=== PATIENT | male | born 1960 | race Hispanic/Latino ===

== ENCOUNTER 2020-12-22 06:00 | Day surgery (SDC) | payer BC ==
[2020-12-18 13:38] LABS: BASOPHILS % (AUTO) 0.8 % (0.0-5.0); EOSINOPHILS % (AUTO) 0.9 % (0.0-8.0); HEMATOCRIT 41.9 % (36-48); LYMPHOCYTES % (AUTO) 31.9 % (21.0-51.0); MEAN CORPUSCULAR HEMOGLOBIN 33.3 pg (27.0-33.0); MEAN CORPUSCULAR HGB CONC 35.6 g/dL (32.0-36.0); MEAN CORPUSCULAR VOLUME 93.7 fL (79-99); MONOCYTES % (AUTO) 9.3 % (3.0-13.0); NEUTROPHILS % (AUTO) 56.7 % (40.0-77.0); PLATELET COUNT (AUTO) 189 K/uL (130-400); RED BLOOD CELL COUNT(AUTO) 4.47 MIL/uL (4.00-5.50); RED CELL DISTRIBUTION WIDTH 12.7 % (11.0-15.5); WHITE BLOOD COUNT (AUTO) 7.7 K/uL (4.8-10.8)
[2020-12-18 13:52] LABS: POTASSIUM 4.3 mmol/L (3.5-5.1)
[2020-12-18 14:23] LABS: INR 1.17 (0.85-1.15); PARTIAL THROMBOPLASTIN TIME 28.8 SEC (26.3-35.5); PROTHROMBIN TIME 12.1 SEC (9.6-11.6)
[~2020-12-22] VITALS: Ht 172.7 cm; Wt 94.2 kg
[2020-12-22] VITALS (9 sets, daily range): BP systolic 125–168; BP diastolic 70–88
[~2020-12-22 06:00] MED LIST: AMIO400T4 PO; ATEN50TA PO; GLIP1TAB6 PO; RIVA20TA PO; ROSU5TAB12 PO; SACU1TAB7 PO
[2020-12-22] MEDS ORDERED: SODIUM CHLORIDE 0.9% 1000ML 1,000 ML IV ONE ×2 (06:13→06:24)
[2020-12-22] MEDS ORDERED: MIDAZOLAM HCL 1 MG/ML 2ML VIAL ONE ×2 (07:52→08:56)
[2020-12-22] MEDS ORDERED: LIDOCAINE HCL 2% 20ML ONE (07:52)
[2020-12-22] MEDS ORDERED: MEPERIDINE-PF 25 MG/ML SYG ONE ×2 (07:52→08:56)
[2020-12-22] MEDS ORDERED: HEPARIN SODIUM 1000UNIT/ML 10ML VIAL ONE (07:54)
[2020-12-22] MEDS ORDERED: SODIUM CHLORIDE 0.9% 1000ML 1,000 ML IV SCH (08:00)
== END 2020-12-22 12:55 | disposition home or self-care (01) ==
LOC: DAH 06:00
PROVIDERS: ATTEND Internal Medicine Cardiovascular Disease
DX: I48.3 Typical atrial flutter (principal); I10 Essential (primary) hypertension; E11.9 Type 2 diabetes mellitus without complications; E78.00 Pure hypercholesterolemia, unspecified; I25.10 Atherosclerotic heart disease of native coronary artery without angina pectoris; Z87.891 Personal history of nicotine dependence; Z79.01 Long term (current) use of anticoagulants; Z79.899 Other long term (current) drug therapy
CPT/HCPCS: 36415; 80048; 82948 ×2; 85025; 85610; 85730; 93005 ×3; 93613; 93621; 93653; A4215; A4216; A4221; A4222; A4223 ×3; A4606; A4649 ×2; A4663; C1730; C1732; C1894 ×2; J1644 ×2; J2175 ×2; J2250 ×2; J3490; J7030 ×2; 99156; 99157

== ENCOUNTER → 2021-03-01 | Outpatient (CLI) | payer BC | END | disposition home or self-care (01) | LOC: SHCH 13:03 | PROVIDERS: ATTEND Internal Medicine Cardiovascular Disease | DX: I48.3 Typical atrial flutter (principal) | CPT/HCPCS: 93306; 93356 ==

== ENCOUNTER → 2022-12-13 | Outpatient (CLI) | payer BC ==
[~2022-12-13] MED LIST changes: +REGADENOSON 0.4 MG/5 ML PF SYG IVP ONE
== END | disposition home or self-care (01) ==
LOC: SHCH 08:54
PROVIDERS: ATTEND Internal Medicine Cardiovascular Disease
DX: I25.10 Atherosclerotic heart disease of native coronary artery without angina pectoris (principal); R06.00 Dyspnea, unspecified
CPT/HCPCS: 78452; 96374; 93017; J2785; A9500 ×2

== ENCOUNTER 2023-01-12 08:43 | Day surgery (SDC) | payer BC ==
[2023-01-10 14:44] LABS: BASOPHILS % (AUTO) 0.6 % (0.0-5.0); EOSINOPHILS % (AUTO) 0.9 % (0.0-8.0); HEMATOCRIT 41.4 % (42-54); LYMPHOCYTES % (AUTO) 27.7 % (21.0-51.0); MEAN CORPUSCULAR HEMOGLOBIN 31.7 pg (27.0-33.0); MEAN CORPUSCULAR HGB CONC 34.5 g/dL (32.0-36.0); MEAN CORPUSCULAR VOLUME 91.8 fL (79-99); MONOCYTES % (AUTO) 10.5 % (3.0-13.0); NEUTROPHILS % (AUTO) 59.6 % (40.0-77.0); PLATELET COUNT (AUTO) 194 K/uL (130-400); RED BLOOD CELL COUNT(AUTO) 4.51 MIL/uL (4.50-6.20); RED CELL DISTRIBUTION WIDTH 13.3 % (11.0-15.5); WHITE BLOOD COUNT (AUTO) 6.7 K/uL (4.8-10.8)
[2023-01-10 14:51] VITALS: BP 142/73
[2023-01-10 14:51] LABS: APPEARANCE,URINE CLEAR (CLEAR); BILIRUBIN,URINE NEGATIVE (NEGATIVE); COLOR,URINE LIGHT-YELLOW (YELLOW); GLUCOSE, URINE (UA) NEGATIVE (NEGATIVE); KETONES,URINE NEGATIVE (NEGATIVE); LEUKOCYTE ESTERASE ,URINE NEGATIVE Leu/uL (NEGATIVE); NITRATE,URINE NEGATIVE (NEGATIVE); OCCULT BLOOD,URINE NEGATIVE (NEGATIVE); PROTEIN,URINE NEGATIVE (NEGATIVE); UROBILINOGEN,URINE 0.2 mg/dL (0.2-1.0)
[2023-01-10 14:52] LABS: RBC,URINE 0-1 /HPF (0-1); WBC,URINE 0-1 /HPF (0-1)
[2023-01-10 14:53] LABS: INR 0.98 (0.85-1.15); PROTHROMBIN TIME 10.7 SEC (9.6-11.6)
[2023-01-10 14:54] LABS: PARTIAL THROMBOPLASTIN TIME 26.5 SEC (26.3-35.5)
[2023-01-10 15:04] LABS: CREATININE 1.1 mg/dL (0.5-1.5); POTASSIUM 3.9 mmol/L (3.5-5.1)
[2023-01-10 15:24] LABS: B-TYPE NATRIURETIC PEPTIDE 25 pg/mL (0-100)
[~2023-01-12] VITALS: Ht 172.7 cm; Wt 90.4 kg
[2023-01-12] VITALS (14 sets, daily range): BP systolic 115–146; BP diastolic 65–81
[~2023-01-12 08:43] MED LIST changes: +ALBU90AE2 IH; +AMIO200T68 PO; -AMIO400T4 PO; +APIX5TAB PO; -ATEN50TA PO; +AZIT500T4 PO; +LISI10TA24 PO; -REGADENOSON 0.4 MG/5 ML PF SYG IVP ONE; -RIVA20TA PO; -ROSU5TAB12 PO; -SACU1TAB7 PO; +SIMV40TA59 PO; +SITA100T12 PO; +VITA400T9 PO
[2023-01-12] MEDS ORDERED: 0.9%NACL 1000ML 1,000 ML IV ONE (09:07)
[2023-01-12] MEDS ORDERED: LIDOCAINE HCL 400MG/20ML VIAL ONE (15:25)
[2023-01-12] MEDS ORDERED: IOHEXOL 350 MG/ML 100ML INFUS..BTL IV ONE (15:26)
[2023-01-12] MEDS ORDERED: IOHEXOL-350 50ML VIAL IV ONE (15:26)
[2023-01-12] MEDS ORDERED: BIVALIRUDIN 250 MG/VIAL IV ONE (15:26)
[2023-01-12] MEDS ORDERED: NICARDIPINE 25MG INJ IV ONE (15:26)
[2023-01-12] MEDS ORDERED: MIDAZOLAM HCL 1 MG/ML 2ML VIAL ONE (15:26)
[2023-01-12] MEDS ORDERED: NITROGLYCERIN 50MG VIAL ONE (15:26)
[2023-01-12] MEDS ORDERED: FENTANYL CITRATE PF 50 MCG/1 ML 2ML VIAL ONE (15:26)
[2023-01-12] MEDS ORDERED: HEPARIN 10,000 UNIT/10ML (1,000 UNIT/ML) VIAL ONE (15:27)
[2023-01-12] MEDS ORDERED: GLUCAGON 1MG KIT 1 MG ML IM PRN (16:30)
[2023-01-12] MEDS ORDERED: DEXTROSE 50%-WATER 50 ML DISP.SYRIN IV PRN (16:30)
[2023-01-12] MEDS ORDERED: INSULIN HUMULIN R 100 UNIT/ML 3ML SQ SCH (16:30)
[2023-01-12] MEDS ORDERED: NITROGLYCERIN 0.4 MG SL TAB SL PRN (16:30)
[2023-01-12] MEDS ORDERED: HYDRALAZINE 20MG/ML VIAL IV PRN (17:00)
[2023-01-12] MEDS ORDERED: ATROPINE 1MG SYG IVP ONE ×2 (17:01→17:02)
== END 2023-01-12 19:55 | disposition home or self-care (01) ==
LOC: DAH 08:43
PROVIDERS: ATTEND Internal Medicine Cardiovascular Disease
DX: I25.119 Atherosclerotic heart disease of native coronary artery with unspecified angina pectoris (principal); I48.20 Chronic atrial fibrillation, unspecified; I25.5 Ischemic cardiomyopathy; I11.0 Hypertensive heart disease with heart failure; I50.42 Chronic combined systolic (congestive) and diastolic (congestive) heart failure; E11.9 Type 2 diabetes mellitus without complications; E78.5 Hyperlipidemia, unspecified; I25.2 Old myocardial infarction; Z79.01 Long term (current) use of anticoagulants; Z79.84 Long term (current) use of oral hypoglycemic drugs; Z79.899 Other long term (current) drug therapy
CPT/HCPCS: 80048; 83880; 85025; 85610; 85730; 81001; 36415; 71045; 93005; 93458; 82948 ×2; C1769 ×2; C1894 ×3; J3010; J3490 ×3; J7030; J1644 ×2; J2250; Q9967; A4215; A4222; A4221; A4663; A4216; A4606; Q9965; A4223 ×3; 99156; 99157; J0461; J0583

== ENCOUNTER → 2023-05-01 | Outpatient (CLI) | payer BC ==
[~2023-05-01] MED LIST changes: -ALBU90AE2 IH; -AZIT500T4 PO; +IOHEXOL 350 MG/ML 100ML INFUS..BTL IV ONE; +ROSU10TA28 PO; -SIMV40TA59 PO; +TIRZ2.5P SQ; -VITA400T9 PO
== END | disposition home or self-care (01) ==
LOC: RAH 09:54
PROVIDERS: ATTEND Internal Medicine Cardiovascular Disease
DX: I48.0 Paroxysmal atrial fibrillation (principal)
CPT/HCPCS: 71275; Q9967

== ENCOUNTER 2023-05-04 06:04 | Observation (INO) | payer BC ==
[2023-04-28 09:08] LABS: BASOPHILS # (AUTO) 0.05 K/uL (0.00-0.20); BASOPHILS % (AUTO) 0.7 % (0.0-5.0); EOSINOPHILS # (AUTO) 0.08 K/uL (0.00-0.70); EOSINOPHILS % (AUTO) 1.1 % (0.0-8.0); HEMATOCRIT 43.8 % (42-54); IMMATURE GRANULOCYTE ABSOLUTE 0.06 K/uL (0-1); LYMPHOCYTES # (AUTO) 1.9 K/uL (1.0-4.8); LYMPHOCYTES % (AUTO) 24.8 % (21.0-51.0); MEAN CORPUSCULAR HEMOGLOBIN 32.8 pg (27.0-33.0); MEAN CORPUSCULAR VOLUME 96.5 fL (79-99); MONOCYTES # (AUTO) 0.7 K/uL (0.1-1.0); MONOCYTES % (AUTO) 8.9 % (3.0-13.0); NEUTROPHILS # (AUTO) 4.8 K/uL (1.8-7.7); NEUTROPHILS % (AUTO) 63.7 % (40.0-77.0); PLATELET COUNT (AUTO) 193 K/uL (130-400); RED BLOOD CELL COUNT(AUTO) 4.54 MIL/uL (4.50-6.20); RED CELL DISTRIBUTION WIDTH 12.7 % (11.0-15.5); WHITE BLOOD COUNT (AUTO) 7.5 K/uL (4.8-10.8)
[2023-04-28 09:19] LABS: INR 0.95 (0.85-1.15); PROTHROMBIN TIME 11.1 SEC (9.6-11.6)
[2023-04-28 09:20] LABS: PARTIAL THROMBOPLASTIN TIME 29.3 SEC (26.3-35.5)
[2023-04-28 09:21] LABS: CREATININE 1.1 mg/dL (0.5-1.5); POTASSIUM 4.5 mmol/L (3.5-5.1)
[2023-04-28 09:28] VITALS: BP 156/78; PULSE 58; RESP 20
[2023-05-04] VITALS (32 sets, daily range): BP systolic 130–157; BP diastolic 62–80; PULSE 50–67; RESP 10–22; O2SAT 98–99
[~2023-05-04] VITALS: Ht 177.8 cm; Wt 92.9 kg
[~2023-05-04 06:04] MED LIST changes: -IOHEXOL 350 MG/ML 100ML INFUS..BTL IV ONE
[2023-05-04] MEDS ORDERED: 0.9%NACL 1000ML 1,000 ML IV ONE (06:37)
[2023-05-04] MEDS ORDERED: MIDAZOLAM HCL 1 MG/ML 2ML VIAL ONE (06:58)
[2023-05-04] MEDS ORDERED: ROCURONIUM 10MG/1ML SYR 10 MG/ML ML ONE ×2 (06:59→08:37)
[2023-05-04] MEDS ORDERED: PROPOFOL 10 MG/ML 20ML VIAL IV ONE (06:59)
[2023-05-04] MEDS ORDERED: FENTANYL CITRATE PF 50 MCG/1 ML 2ML VIAL ONE ×2 (06:59→07:23)
[2023-05-04] MEDS ORDERED: HEPARIN 10,000 UNIT/10ML (1,000 UNIT/ML) VIAL ONE ×2 (07:15→08:44)
[2023-05-04] MEDS ORDERED: LIDOCAINE HCL 1% MDV 50ML VIAL ONE (07:15)
[2023-05-04] MEDS ORDERED: PHENYLEPHRINE HCL 10 MG/ML 1ML VIAL IV ONE (07:23)
[2023-05-04] MEDS ORDERED: PROTAMINE SULFATE 10 MG/ML 25ML VIAL IV ONE (10:13)
[2023-05-04] MEDS ORDERED: NEOSTIGMINE 5MG/5ML SYR IV ONE (10:29)
[2023-05-04] MEDS ORDERED: GLYCOPYRROLATE 1 MG/5 ML SYRINGE ONE (10:29)
[2023-05-04] MEDS ORDERED: SUCR1ORA15 PO (10:51)
[2023-05-04] MEDS ORDERED: PANT40TA55 PO (10:51)
[2023-05-04] MEDS ORDERED: PANTOPRAZOLE 40 MG TAB DR PO SCH (11:00)
[2023-05-04] MEDS: SUCRALFATE 1 GM TABLET PO SCH ×3 (11:00→23:27)
[2023-05-04] MEDS ORDERED: Tirzepatide (Mounjaro) 2.5 MG SQ SCH (11:30)
[2023-05-04] MEDS ORDERED: Rosuvastatin Calcium 10 MG PO SCH (21:00)
[2023-05-04] MEDS: METFORMIN HCL PO SCH (21:11)
[2023-05-04] MEDS: GLIPIZIDE PO SCH (21:11)
[2023-05-04] MEDS: APIXABAN 5 MG TABLET PO SCH (21:11)
[2023-05-05 00:24] VITALS: BP 148/73; PULSE 55; RESP 18
[2023-05-05 03:45] VITALS: BP 142/69; PULSE 62; RESP 18
[2023-05-05] MEDS: SUCRALFATE 1 GM TABLET PO SCH (05:01)
[2023-05-05 07:51] VITALS: O2SAT 99
[2023-05-05] MEDS: APIXABAN 5 MG TABLET PO SCH (08:43)
[2023-05-05] MEDS: GLIPIZIDE PO SCH (08:44)
[2023-05-05] MEDS: METFORMIN HCL PO SCH (08:44)
[2023-05-05 08:59] VITALS: BP 135/77; PULSE 53; RESP 18
[2023-05-05] MEDS ORDERED: PANTOPRAZOLE 40 MG TAB DR PO SCH (09:00)
[2023-05-05] MEDS ORDERED: LISINOPRIL 10 MG TABLET PO SCH (09:00)
== END 2023-05-05 10:26 | disposition home or self-care (01) ==
LOC: DAH 06:04 → DAHIP 06:05 → 2BH 12:19 → 2DH 20:44
PROVIDERS: ADMIT Internal Medicine Cardiovascular Disease; ATTEND Internal Medicine Cardiovascular Disease
DX: I48.0 Paroxysmal atrial fibrillation (principal); I25.5 Ischemic cardiomyopathy; I25.10 Atherosclerotic heart disease of native coronary artery without angina pectoris; E11.9 Type 2 diabetes mellitus without complications; I25.2 Old myocardial infarction; Z95.1 Presence of aortocoronary bypass graft; Z79.899 Other long term (current) drug therapy; Z98.890 Other specified postprocedural states
CPT/HCPCS: 80048; 85025; 85610; 85730; 36415; 93005; 93622; 93656; 85347 ×5; 82948 ×3; A4344; C1894 ×3; C1732 ×2; C1731; A4649 ×2; C1766; G0378 ×23; J3010 ×2; J3490 ×2; J2710; J7030; J2720; J1644 ×3; J2250; J2704; J2371; A4215; A4223; A4222; A4221; A4663

== ENCOUNTER 2024-11-04 07:06 | Day surgery (SDC) | payer OTHER ==
[2024-11-01 14:31] VITALS: BP 115/94; PULSE 120; RESP 17; TEMP 98.1
[2024-11-01 14:41] LABS: BASOPHILS # (AUTO) 0.03 K/uL (0.00-0.20); BASOPHILS % (AUTO) 0.4 % (0.0-5.0); EOSINOPHILS # (AUTO) 0.06 K/uL (0.00-0.70); EOSINOPHILS % (AUTO) 0.8 % (0.0-8.0); HEMATOCRIT 44.4 % (42-54); IMMATURE GRANULOCYTE ABSOLUTE 0.02 K/uL (0-1); LYMPHOCYTES # (AUTO) 2.5 K/uL (1.0-4.8); MEAN CORPUSCULAR HEMOGLOBIN 31.9 pg (27.0-33.0); MEAN CORPUSCULAR VOLUME 93.7 fL (79-99); MONOCYTES # (AUTO) 0.6 K/uL (0.1-1.0); MONOCYTES % (AUTO) 8.4 % (3.0-13.0); NEUTROPHILS # (AUTO) 4.1 K/uL (1.8-7.7); NEUTROPHILS % (AUTO) 56.1 % (40.0-77.0); PLATELET COUNT (AUTO) 229 K/uL (130-400); RED BLOOD CELL COUNT(AUTO) 4.74 MIL/uL (4.50-6.20); RED CELL DISTRIBUTION WIDTH 13.4 % (11.0-15.5); WHITE BLOOD COUNT (AUTO) 7.4 K/uL (4.8-10.8)
[2024-11-01 14:56] LABS: CREATININE 0.9 mg/dL (0.5-1.3); POTASSIUM 4.1 mmol/L (3.5-5.1)
[2024-11-01 15:15] LABS: INR 1.06 (0.85-1.15); PROTHROMBIN TIME 11.2 SEC (9.6-11.6)
[2024-11-01 15:17] LABS: PARTIAL THROMBOPLASTIN TIME 29.3 SEC (26.3-35.5)
[~2024-11-04] VITALS: Ht 177.8 cm; Wt 85.8 kg
[~2024-11-04 07:06] MED LIST changes: -LISI10TA24 PO; +METO50TA18 PO; -ROSU10TA28 PO; -SITA100T12 PO
[2024-11-04 07:30] VITALS: BP 99/81; PULSE 114; RESP 18; TEMP 97.2
--- NOTE | 2024-11-04 07:47 | EKG ---
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
[2024-11-04] MEDS: 0.9%NACL 1000ML 1,000 ML IV SCH (07:55)
[2024-11-04] MEDS ORDERED: proPOFol 10 MG/ML 20ML VIAL IV ONE (09:42)
[2024-11-04 09:51] VITALS: BP 122/92; PULSE 113; RESP 14
[2024-11-04 09:54] VITALS: BP 93/60; PULSE 66; RESP 11
[2024-11-04 10:00] VITALS: BP 99/61; PULSE 67; RESP 10; TEMP 97.2
--- NOTE | 2024-11-04 10:17 | EKG ---
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
--- NOTE | 2024-11-04 10:25 | NUR ---
[address] Glover and Alexei RN anesthesia 0953 cardioversion 200J administered - rhythm converted to NS 1000 pt awake and alert x4 at this time
[2024-11-04 10:41] VITALS: BP 99/70; PULSE 70; RESP 12; TEMP 97.2
--- NOTE | 2024-11-04 10:54 | NUR ---
PROCEDURE START AT 0945 PROCEDURE END AT 1006
--- NOTE | 2024-11-19 17:30 | PRN ---
Procedure Note Date of procedure: 11/04/24 Diagnosis: Persistent atrial fibrillation Procedure: Cardioversion Physician: Emanuel French MD The patient was brought to the day patient area in a fasting state. Anesthesia was provided by the anesthesia service. Cardioversion was performed with a synchronized shock at 200 joules resulting in sinus rhythm. The patient tolerated the procedure well. Final diagnosis: Persistent atrial fibrillation, status post successful cardiov ersion Disposition: The patient will be discharged later today and will follow up with me in the office in approximately two weeks. EMANUEL FRENCH MD Nov 19, 2024 17:30
== END 2024-11-04 11:00 ==
LOC: DAH 07:06
PROVIDERS: ATTEND Internal Medicine Cardiovascular Disease
DX: I48.19 Other persistent atrial fibrillation (principal); I25.10 Atherosclerotic heart disease of native coronary artery without angina pectoris; I25.5 Ischemic cardiomyopathy; E11.9 Type 2 diabetes mellitus without complications; G47.33 Obstructive sleep apnea (adult) (pediatric); I25.2 Old myocardial infarction; E66.9 Obesity, unspecified; Z68.27 Body mass index [BMI] 27.0-27.9, adult; Z87.891 Personal history of nicotine dependence; Z79.82 Long term (current) use of aspirin; Z95.5 Presence of coronary angioplasty implant and graft; Z79.899 Other long term (current) drug therapy; Z79.84 Long term (current) use of oral hypoglycemic drugs
CPT/HCPCS: 80048; 85025; 85610; 85730; 36415; 92960; 82948; 93005 ×2; J2704; A4215; A4222; A4221; A4663; A4216; J7030; A4606; A4223 ×3; J3490

== ENCOUNTER → 2024-11-14 | Outpatient (CLI) | payer OTHER | END | disposition home or self-care (01) | LOC: LAB 11:16 | PROVIDERS: ATTEND Physician Assistant | DX: I25.5 Ischemic cardiomyopathy (principal); I48.19 Other persistent atrial fibrillation | CPT/HCPCS: 36415; 82565; 84520 ==

== ENCOUNTER → 2024-11-22 | Outpatient (CLI) | payer OTHER ==
[~2024-11-22] MED LIST changes: +IOHEXOL 350 MG/ML 100ML INFUS..BTL IV ONE
--- NOTE | 2024-11-22 12:09 | HMCIMG ---
CT angiogram chest CLINICAL INDICATION: OTHER PERSISTENT A-FIB COMPARISON: None. CT Dose Index (CTDI): 113.50 mGy Dose Length Product (DLP): 1408.10 total mGy PROTOCOL: Contrast: 100 cc of Isovue-370, injected IV, no complications Examination is done at 2.5 millimeter volumetric acquisition after contrast administration. Photography is done at 5 millimeter thick intervals for the thorax. FINDINGS: There is no evidence of pulmonary embolism. The airway is intact. The trachea and major bronchi are unremarkable. No pulmonary infiltrates or mass lesions are seen. No pleural effusions are identified. The exam of the corby and mediastinum is unremarkable. No evidence of hilar enlargement is seen. The aorta shows no aneurysmal dilatation or significant atheromatous calcification. There is no thoracic aortic dissection. No significant brachiocephalic vascular abnormalities are seen. The heart is unremarkable. It is not enlarged. No significant coronary arterial calcifications are seen. There is no pericardial effusion. The rib cage appears unremarkable. The soft tissues of the chest wall are unremarkable. The dorsal spine shows no significant abnormalities. Limited evaluation of the upper abdomen demonstrates no gross abnormalities. IMPRESSION: No evidence of pulmonary embolism. This study was performed using dose reduction techniques to include automated exposure control and/or adjustment of the mA and/or kV according to patient size.
== END | disposition home or self-care (01) ==
LOC: RAH 09:54
PROVIDERS: ATTEND Internal Medicine Cardiovascular Disease
DX: I48.19 Other persistent atrial fibrillation (principal)
CPT/HCPCS: 71275; Q9967

== ENCOUNTER 2024-12-05 09:08 | Day surgery (SDC) | payer OTHER ==
[2024-12-03 11:27] LABS: BASOPHILS # (AUTO) 0.07 K/uL (0.00-0.20); BASOPHILS % (AUTO) 0.7 % (0.0-5.0); HEMATOCRIT 43.4 % (42-54); IMMATURE GRANULOCYTE ABSOLUTE 0.06 K/uL (0-1); LYMPHOCYTES # (AUTO) 1.9 K/uL (1.0-4.8); LYMPHOCYTES % (AUTO) 18.3 % (21.0-51.0); MEAN CORPUSCULAR HGB CONC 34.8 g/dL (32.0-36.0); MEAN CORPUSCULAR VOLUME 91.9 fL (79-99); MONOCYTES # (AUTO) 0.7 K/uL (0.1-1.0); MONOCYTES % (AUTO) 7.1 % (3.0-13.0); NEUTROPHILS # (AUTO) 7.3 K/uL (1.8-7.7); NEUTROPHILS % (AUTO) 72.3 % (40.0-77.0); PLATELET COUNT (AUTO) 216 K/uL (130-400); RED BLOOD CELL COUNT(AUTO) 4.72 MIL/uL (4.50-6.20); RED CELL DISTRIBUTION WIDTH 13.3 % (11.0-15.5); WHITE BLOOD COUNT (AUTO) 10.1 K/uL (4.8-10.8)
[2024-12-03 11:36] LABS: CREATININE 1.1 mg/dL (0.5-1.3); POTASSIUM 3.9 mmol/L (3.5-5.1)
[2024-12-03 11:46] VITALS: BP 109/68; PULSE 82; RESP 18; TEMP 97.5
[~2024-12-05] VITALS: Ht 171.4 cm; Wt 83.2 kg
[2024-12-05] VITALS (7 sets, daily range): BP systolic 95–127; BP diastolic 57–91; PULSE 57–90; RESP 14–16; TEMP 97.4–97.5
[~2024-12-05 09:08] MED LIST changes: -IOHEXOL 350 MG/ML 100ML INFUS..BTL IV ONE; +LISI10TA24 PO; +TESTOSTERONE CYP IM
--- NOTE | 2024-12-05 09:09 | NUR ---
PT SYNCHRONIZED CARDIOVERTED [address] FRENCH PT TOLERATED WELL NAD VSS.
[2024-12-05] MEDS ORDERED: proPOFol 10 MG/ML 20ML VIAL IV ONE (09:40)
--- NOTE | 2024-12-05 09:54 | NUR ---
PT AWAKE CAOX 4 VSS NAD
--- NOTE | 2024-12-05 10:50 | NUR ---
TR BAND REMOVED SITE ASYMPTOMATIC. STERILE 4X4 APPLIED WITH TEGADERM. VSS PT TOLERATED WELL. Addendum: 12/05/24 at 1213 by ADRIANA BAGLEY RN RN WRONG PT
--- NOTE | 2024-12-05 13:00 | EKG ---
[facility] Test Date: 2024-12-05 Test Time: 09:14:40 Pat Name: LENNY BRADLEY Department: [facility] Room: [facility] Gender: M Rate Marker: [id number] : 1960 Requested By: FLAQUITA FRENCH Order Number: [id number] Reading MD: Jermaine Ladd Measurements Intervals [place] Rate: 89 P: 0 [place]: 0 QRS: 13 QRSD: 109 T: 2 QT: 360 QTc: 439 Interpretive Statements Atrial fibrillation Probable left ventricular hypertrophy Inferior infarct, old Compared to ECG 11/04/2024 10:49:09 Sinus rhythm no longer present Myocardial infarct finding still present Electronically Signed On 12-06-2024 14:48:31 CDT by Jermaine Ladd Please click the below link to view image of tracing.
--- NOTE | 2024-12-05 13:00 | EKG ---
[facility] Test Date: 2024-12-05 Test Time: 09:56:14 Pat Name: LENNY BRADLEY Department: [facility] Room: [facility] Gender: M Copy Editor: LUCIANO : 1960 Requested By: FLAQUITA FRENCH Order Number: [id number] Reading MD: Jermaine Ladd Measurements Intervals [place] Rate: 58 P: 31 [place]: 182 QRS: -18 QRSD: 106 T: 55 QT: 438 QTc: 429 Interpretive Statements Sinus bradycardia Minimal voltage criteria for LVH, may be normal variant Inferior infarct , age undetermined Compared to ECG 12/05/2024 09:14:40 Atrial fibrillation no longer present Myocardial infarct finding still present Electronically Signed On 12-06-2024 14:48:38 CDT by Jermaine Ladd Please click the below link to view image of tracing.
--- NOTE | 2024-12-05 15:04 | PRN ---
Procedure Note Date of procedure: 12/05/24 Diagnosis: Persistent atrial fibrillation Procedure: Cardioversion Physician: Emanuel French MD The patient was brought to the day patient area in a fasting state. Anesthesia was provided by the anesthesia service. Cardioversion was performed with a synchronized shock at 200 joules resulting in sinus rhythm. The patient tolerated the procedure well. Final diagnosis: Persistent atrial fibrillation, status post successful cardiov ersion Disposition: The patient will be discharged later today and will follow up with me in the office in approximately two weeks. EMANUEL FRENCH MD Dec 05, 2024 15:04
--- NOTE | 2024-12-06 00:16 | HMCSR ---
APPROVED REPORT EXAM: Limited two-dimensional echocardiogram INDICATION ICD: Status post cardioversion, assess left ventricular function 2D Dimensions IVSd0.7 (0.7-1.1cm)LVEF(%)32.1 (>50%)LVED Vol(simp.)148.0 mL LVDd5.9 (3.8-5.6cm)FS(%)15 %LVES Vol(simp.)102.0 mL PWd1.1 (0.7-1.1cm)LVEF(%, simp.)31 % IVSs0.8 cm LVDs5.0 (2.5-4.0cm) PWs0.9 cm Deformation Strain Apical 4-11.0 % Apical 2-10.0 % Apical 3-9.0 % Global Strain-10.0 % Tricuspid Valve RAP (EST) 3 mmHgRVSP3.0 mmHg Left Ventricle The left ventricle is dilated, LVIDd 5.9cm. There is global hypokinesis of the left ventricle. Mild e ccentric left ventricular hypertrophy. Left ventricle systolic function is severely depressed, 25-30% Indeterminate diastolic function. Great Vessels The IVC is normal in size and collapses >50% with inspiration. Pericardium No pericardial effusion. Other Information Quality : Adequate Conclusion Limited echocardiogram to reassess systolic/diastolic function status post DC cardioversion. The left ventricle is dilated, LVIDd 5.9cm. Mild eccentric left ventricular hypertrophy. There is global hypokinesis of the left ventricle. Left ventricle systolic function is severely depressed, 25-30% Indeterminate diastolic function. No pericardial effusion. When compared to the patient's previous echocardiogram done on 11/21/2024 LVEF has minimally improved from 20-25% to 25-30%.
== END 2024-12-05 10:50 | disposition home or self-care (01) ==
LOC: DAH 09:08
PROVIDERS: ATTEND Internal Medicine Cardiovascular Disease
DX: I48.19 Other persistent atrial fibrillation (principal); I25.10 Atherosclerotic heart disease of native coronary artery without angina pectoris; E11.9 Type 2 diabetes mellitus without complications; I25.2 Old myocardial infarction; Z79.01 Long term (current) use of anticoagulants; Z79.82 Long term (current) use of aspirin; Z79.899 Other long term (current) drug therapy
CPT/HCPCS: 80048; 85025; 36415; 92960; 93308; 93356; 93005 ×2; J2704; A4620; A4215; A4222; A4221; A4663; A4216; A4606; A4223 ×3; 36430; J3490

== ENCOUNTER 2025-05-06 05:59 | Day surgery (SDC) | payer OTHER ==
[2025-05-02 08:59] LABS: IMMATURE GRANULOCYTE ABSOLUTE 0.05 K/uL (0-1); NUCLEATED RED BLOOD CELLS 0.0 % (0.0-0.19); PLATELET COUNT (AUTO) 222 K/uL (130-400); RED BLOOD CELL COUNT(AUTO) 4.77 MIL/uL (4.50-6.20); RED CELL DISTRIBUTION WIDTH 13.6 % (11.0-15.5); WHITE BLOOD COUNT (AUTO) 8.8 K/uL (4.8-10.8)
[2025-05-02 09:08] LABS: CREATININE 1.0 mg/dL (0.5-1.3); GLOMERULAR FILTR. RATE CALC 82.0 mL/min (>90); GLUCOSE,RANDOM 142.0 mg/dL (70-105); SODIUM SERUM 141.0 mmol/L (136-145); UREA NITROGEN, BLOOD 15.0 mg/dL (7-18)
--- NOTE | 2025-05-02 09:08 | EKG ---
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
[2025-05-02 09:10] LABS: INR 1.01 (0.85-1.15)
[2025-05-02 09:19] VITALS: BP 177/78; PULSE 66; RESP 14; TEMP 97.8
[~2025-05-06] VITALS: Ht 177.8 cm; Wt 82.0 kg
[2025-05-06] VITALS (18 sets, daily range): BP systolic 121–167; BP diastolic 62–85; PULSE 52–60; RESP 11–21; TEMP 96.8–97.8
[~2025-05-06 05:59] MED LIST changes: -AMIO200T68 PO; +AMIO200T73 PO; -GLIP1TAB6 PO; -LISI10TA24 PO; +METF750T46 PO; +METO-409 PO; -METO50TA18 PO; +SACU1TAB PO; -TIRZ2.5P SQ; +TIRZ5PEN SQ
[2025-05-06] MEDS: 0.9%NACL 1000ML 1,000 ML IV ONE (06:48)
[2025-05-06] MEDS ORDERED: SUGAMMADEX SODIUM 200 MG/2 ML VIAL IV ONE (07:05)
[2025-05-06] MEDS ORDERED: MIDAZOLAM HCL 1 MG/ML 2ML VIAL ONE (07:07)
[2025-05-06] MEDS ORDERED: GLYCOPYRROLATE 0.2 MG/ML 5 ML VIAL ONE (07:08)
[2025-05-06] MEDS ORDERED: ATROPINE 1MG SYG IVP ONE (07:09)
[2025-05-06] MEDS ORDERED: LIDOCAINE HCL 400MG/20ML VIAL ONE (07:13)
[2025-05-06] MEDS ORDERED: SODIUM BICARB 50MEQ 50ML VIAL 50 ML ONE (07:13)
[2025-05-06] MEDS ORDERED: HEParin-NS 1,000 UNIT/500 ML 1,000 ML IV ONE (07:14)
[2025-05-06] MEDS ORDERED: LIDOCAINE PF 100MG/5ML (2%) SYRINGE 5ML ONE (07:15)
[2025-05-06] MEDS ORDERED: IOHEXOL-350 50ML VIAL IV ONE (11:29)
[2025-05-06] MEDS ORDERED: SUCR1TAB2 PO (12:04)
[2025-05-06] MEDS ORDERED: PANT40TA55 PO (12:04)
[2025-05-06] MEDS: SUCRALFATE 1 GM/10 ML PO ONE (13:11)
--- NOTE | 2025-05-06 15:00 | NUR ---
BOTH PT AND SPOUSE GIVEN VERBAL AND WRITTEN DISCHARGE INSTRUCTIONS IV REMOVED SITE ASYMPTOMATIC. PT TAKEN OUT VIA WHEELCHAIR DRIVING.
== END 2025-05-06 15:15 | disposition home or self-care (01) ==
LOC: DAH 05:59
PROVIDERS: ATTEND Internal Medicine Cardiovascular Disease
DX: I48.19 Other persistent atrial fibrillation (principal); I50.22 Chronic systolic (congestive) heart failure; I25.10 Atherosclerotic heart disease of native coronary artery without angina pectoris; E11.9 Type 2 diabetes mellitus without complications; I25.2 Old myocardial infarction; G47.33 Obstructive sleep apnea (adult) (pediatric); Z87.891 Personal history of nicotine dependence; Z95.5 Presence of coronary angioplasty implant and graft; Z79.84 Long term (current) use of oral hypoglycemic drugs; Z79.01 Long term (current) use of anticoagulants; Z79.899 Other long term (current) drug therapy
CPT/HCPCS: 80048; 85025; 85610; 85730; 36415; 93005; 93656; 85347 ×7; 82948 ×2; C1894 ×4; C1732 ×3; C1769; C1760 ×4; A4649 ×2; C1766; J3010; J1100; J7030; J3490 ×6; J2003; J2720; J1644 ×3; J2250; J2704; J2405; J2371; Q9967; A4215; A4222; A4221; A4663; A4216; A4606; A4223 ×3; J0169; J0461